=== PATIENT | female | born 1960 | race Caucasian/White ===

== ENCOUNTER 2021-10-27 22:43 | Emergency (ER) | payer BC ==
[2021-10-28 00:11] LABS: Urine Blood Negative (Negative); Urine Glucose Negative (Negative); Urine Protein Negative (Negative); Urine Specific Gravity <=1.005 (1.005-1.030); Urine pH 5.5 (5.0-7.0)
[2021-10-28 00:39] LABS: Urine Bacteria <20 /HPF (<20); Urine RBC <5 /HPF (None Seen)
[2021-10-28 01:09] LABS: Absolute Lymphocytes (CBC) 2.4 K/uL (0.7-4.9); Hematocrit 36.3 % (36.0-45.0); Lymphocytes % 31.3 % (15.3-44.8); MCV 89.4 fL (80-100); MPV 10.6 fL (7.6-11.3); RBC Red Blood Cell Count 4.06 M/uL (3.86-4.86)
[2021-10-28 01:16] LABS: Albumin 3.2 g/dL (3.4-5.0); Bilirubin Total 0.4 mg/dL (0.2-1.0); Potassium 3.3 mmol/L (3.5-5.1); Protein, Total 6.5 g/dL (6.4-8.2)
--- NOTE | 2021-10-28 01:58 | ER ---
Nurse's Notes [facility] Name: Tatyana Canela Age: 60 yrs Sex: Female : 1960 Arrival Date: 10/27/2021 Time: 22:49 Bed 4 Private MD: Diagnosis: Lower abdominal pain, unspecified Presentation: 10/27 23:02 Chief complaint: Lower abdominal pain, left sided low back pain, and pain with hb urination x 3 days. Hx of kidney stones. Coronavirus screen: At this time, the client does not indicate any symptoms associated with coronavirus-19. Ebola Screen: No symptoms or risks identified at this time. Initial Sepsis Screen: Does the patient meet any 2 criteria? No. Patient's initial sepsis screen is negative. Does the patient have a suspected source of infection? No. Patient's initial sepsis screen is negative. Risk Assessment: Do you want to hurt yourself or someone else? Patient reports no desire to harm self or others. Onset of symptoms was October 25, 2021. 23:02 Method Of Arrival: Ambulatory hb 23:02 Acuity: BRIAN 3 hb Triage Assessment: 10/28 02:11 General: Appears in no apparent distress. Behavior is calm, cooperative, appropriate tw5 for age. Historical: - Allergies: 10/27 23:05 Iodinated Contrast Media - IV Dye; hb - Home Meds: 23:06 Synthroid Oral [Active]; Simvastatin Oral [Active]; Toprol XL Oral [Active]; hb Hydroxyzine Oral [Active]; - PMHx: 23:06 Hypothyroidism; Anxiety; hb - PSHx: 23:06 partial hysterectomy; bariatric sx; Cholecystectomy; hb - Immunization history:: Adult Immunizations up to date, Client reports receiving the 2nd dose of the Covid vaccine. - Social history:: Smoking status: Patient denies any tobacco usage or history of. Screenin/19 00:40 Abuse screen: Denies threats or abuse. Denies injuries from another. Nutritional tw5 screening: No deficits noted. Tuberculosis screening: No symptoms or risk factors identified. Fall Risk None identified. Assessment: 00:40 General: Reports "I have this pain, I thought it was gas, it started on Wednesday. tw5 Sometimes I get really bad gas, but it hasn't gone away, it has only gotten worse. I have had bowel movements.". Pain: Complains of pain in suprapubic area, right lower quadrant and left lower quadrant Pain currently is 5 out of 10 on a pain scale. GI: Bowel sounds present X 4 quads. Abdomen is tender to palpation in suprapubic area, right lower quadrant and left lower quadrant. Vital Signs: 10/27 23:02 BP 120 / 73; Pulse 68; Resp 18; Temp 97.4; Pulse Ox 97% on R/A; Weight 106.59 kg; hb Height 5 ft. 4 in. (162.56 cm); Pain 8/10; 10/28 00:40 BP 116 / 66; Pulse 70; Resp 18; Pulse Ox 97% on R/A; Pain 5/10; tw5 02:08 BP 124 / 76; Pulse 64; Resp 18; Pulse Ox 97% on R/A; Pain 5/10; tw5 02:13 BP 122 / 75; Pulse 57; Pulse Ox 95% on R/A; tw5 02:14 Pain 0/10; tw5 10/27 23:02 Body Mass Index 40.34 (106.59 kg, 162.56 cm) hb ED Course: 10/27 22:49 Patient arrived in ED. bp1 22:53 [facility] kb 22:53 Luis Babcock MD is Attending Physician. kb 23:02 Arm band placed on. hb 23:05 Triage completed. hb 23:52 CT Stone Protocol In Process Unspecified. EDMS 10/28 00:37 Jaelyn Marin, HANS is Primary Nurse. aa9 00:40 Patient has correct armband on for positive identification. Placed in gown. Pulse ox tw5 on. NIBP on. Door closed. 00:40 Initial lab(s) drawn, by me, sent to lab. Inserted saline lock: 20 gauge in right tw5 antecubital area, using aseptic technique. Blood collected. 00:46 CBC with Diff Sent. tw5 00:46 CMP Sent. tw5 00:46 Lipase Sent. tw5 02:09 No provider procedures requiring assistance completed. IV discontinued, intact, tw5 bleeding controlled, No redness/swelling at site. Pressure dressing applied. Administered Medications: 02:05 Drug: Potassium Chloride 20 mEq Route: PO; tw5 02:14 Follow up: Response: No adverse reaction tw5 02:05 Drug: morphine 4 mg Route: IVP; Infused Over: 4 mins; Site: right antecubital; tw5 02:14 Follow up: Pain 0/10 Adult; Response: No adverse reaction; Pain is decreased; RASS: tw5 Alert and Calm (0) 02:05 Drug: Zofran (Ondansetron) 4 mg Route: IVP; Site: right antecubital; tw 02:14 Follow up: Response: No adverse reaction tw Medication: 00:40 VIS not applicable for this client. tw Outcome: 01:57 Discharge ordered by MD. hanley 02:11 Discharged to home ambulatory, with friend. tw 02:11 Condition: improved 02:11 Discharge instructions given to patient, Instructed on discharge instructions, follow up and referral plans. Demonstrated understanding of instructions, follow-up care, medications, Prescriptions given X 2. 02:17 Patient left the ED. Signatures: Dispatcher [employer] EDMS Sandie Beck, TREY-C GUEST SERVICES LEAD-CkBrittney Kapadia RN RN Bianca Schwartz Tiffany tw5 Jaelyn Marin, HANS RN aa9 Corrections: (The following items were deleted from the chart) 10/27 23:06 23:05 Allergies: No Known Allergies; [facility]
--- NOTE | 2021-10-28 01:58 | EDPHYS ---
Physician Documentation [facility] Name: Tatyana Canela Age: 60 yrs Sex: Female : 1960 Arrival Date: 10/27/2021 Time: 22:49 Bed 4 Private MD: ED Physician Luis Babcock HPI: 10/28 01:06 This 60 yrs old Female presents to ER via Ambulatory with complaints of Possible Kidney kb Stone. 01:06 The patient presents with abdominal pain. Onset: The symptoms/episode began/occurred 3 kb day(s) ago. The symptoms radiate to the left flank. Associated signs and symptoms: Pertinent positives: dysuria, nausea. The symptoms are described as constant. Modifying factors: The symptoms are alleviated by nothing, the symptoms are aggravated by nothing. Severity of pain: At its worst the pain was moderate in the emergency department the pain is unchanged. The patient has experienced a previous episode. The patient has not recently seen a physician. Historical: - Allergies: 10/27 23:05 Iodinated Contrast Media - IV Dye; hb - Home Meds: 23:06 Synthroid Oral [Active]; Simvastatin Oral [Active]; Toprol XL Oral [Active]; hb Hydroxyzine Oral [Active]; - PMHx: 23:06 Hypothyroidism; Anxiety; hb - PSHx: 23:06 partial hysterectomy; bariatric sx; Cholecystectomy; hb - Immunization history:: Adult Immunizations up to date, Client reports receiving the 2nd dose of the Covid vaccine. - Social history:: Smoking status: Patient denies any tobacco usage or history of. ROS: 10/28 01:05 Constitutional: Negative for fever, chills, and weight loss. kb Abdomen/GI: Positive for abdominal pain, Negative for nausea, vomiting, and diarrhea. : Positive for flank pain, burning with urination. All other systems are negative. Exam: 01:05 Constitutional: This is a well developed, well nourished patient who is awake, alert, kb and in no acute distress. Head/Face: Normocephalic, atraumatic. ENT: Moist Mucous membranes Cardiovascular: Regular rate and rhythm with a normal S1 and S2. No gallops, murmurs, or rubs. No pulse deficits. Respiratory: Respirations even and unlabored. No increased work of breathing. Talking in full sentences Skin: Warm, dry with normal turgor. Normal color. MS/ Extremity: Pulses equal, no cyanosis. Neurovascular intact. Full, normal range of motion. Neuro: Awake and alert, GCS 15, oriented to person, place, time, and situation. Moves all extremities. Normal gait. Psych: Awake, alert, with orientation to person, place and time. Behavior, mood, and affect are within normal limits. 01:05 Abdomen/GI: Inspection: abdomen appears normal, Bowel sounds: normal, in all quadrants, Palpation: soft, in all quadrants, mild abdominal tenderness, in the suprapubic area. 01:05 Back: CVA tenderness, that is mild, is noted on the left. Vital Signs: 10/27 23:02 BP 120 / 73; Pulse 68; Resp 18; Temp 97.4; Pulse Ox 97% on R/A; Weight 106.59 kg; hb Height 5 ft. 4 in. (162.56 cm); Pain 8/10; 10/28 00:40 BP 116 / 66; Pulse 70; Resp 18; Pulse Ox 97% on R/A; Pain 5/10; tw5 02:08 BP 124 / 76; Pulse 64; Resp 18; Pulse Ox 97% on R/A; Pain 5/10; tw5 02:13 BP 122 / 75; Pulse 57; Pulse Ox 95% on R/A; tw5 02:14 Pain 0/10; tw5 10/27 23:02 Body Mass Index 40.34 (106.59 kg, 162.56 cm) hb MDM: 10/27 23:05 Patient medically screened. kb 10/28 01:06 Data reviewed: vital signs, nurses notes. Data interpreted: Pulse oximetry: on room air kb is 97 %. Interpretation: normal. 01:57 Counseling: I had a detailed discussion with the patient and/or guardian regarding: the kb historical points, exam findings, and any diagnostic results supporting the discharge/admit diagnosis, lab results, radiology results, the need for outpatient follow up, a family practitioner, to return to the emergency department if symptoms worsen or persist or if there are any questions or concerns that arise at home. 10/27 23:05 Order name: CBC with Diff; Complete Time: 01:11 kb 10/27 23:05 Order name: CMP; Complete Time: 01:35 kb 10/27 23:05 Order name: Lipase; Complete Time: 01:35 kb 10/27 23:05 Order name: Urine Microscopic Only; Complete Time: 00:44 kb 10/27 23:05 Order name: CT Stone Protocol kb 10/28 00:11 Order name: Urine Dipstick-Ancillary; Complete Time: 00:17 EDMS 10/27 23:05 Order name: IV Saline Lock; Complete Time: 00:46 kb 10/27 23:05 Order name: Labs collected and sent; Complete Time: 00:46 kb 10/27 23:05 Order name: Urine Dipstick-Ancillary (obtain specimen); Complete Time: 00:05 kb Administered Medications: 02:05 Drug: Potassium Chloride 20 mEq Route: PO; tw5 02:14 Follow up: Response: No adverse reaction tw5 02:05 Drug: morphine 4 mg Route: IVP; Infused Over: 4 mins; Site: right antecubital; tw5 02:14 Follow up: Pain 0/10 Adult; Response: No adverse reaction; Pain is decreased; RASS: tw5 Alert and Calm (0) 02:05 Drug: Zofran (Ondansetron) 4 mg Route: IVP; Site: right antecubital; tw5 02:14 Follow up: Response: No adverse reaction tw5 Disposition: 04:25 Co-signature as Attending Physician, Luis Babcock MD. rn Disposition Summary: 10/28/21 01:57 Discharge Ordered Location: Home kb Condition: Stable kb Diagnosis - Lower abdominal pain, unspecified kb Followup: kb - With: Emergency Department - When: As needed - Reason: Worsening of condition Followup: kb - With: Private Physician - When: 2 - 3 days - Reason: Recheck today's complaints, Continuance of care, Re-evaluation by your physician Discharge Instructions: - Discharge Summary Sheet kb - Abdominal Pain, Adult, Zwym-bv-Ajdv kb Forms: - Medication Reconciliation Form kb - Thank You Letter kb - Antibiotic Education kb - Prescription Opioid Use kb Prescriptions: - Zofran 4 mg Oral Tablet - take 1 tablet by ORAL route every 6 hours As needed; 20 tablet; Refills: 0, kb Product Selection Permitted - Diclofenac Sodium 75 mg Oral tablet,delayed release (DR/EC) - take 1 tablet by ORAL route 2 times per day As needed; 30 tablet; Refills: 0, kb Product Selection Permitted Signatures: Dispatcher [employer] Sandie Lopez, DIRECTOR OF FLIGHT OPERATIONS-C DIRECTOR OF FLIGHT OPERATIONS-Ckb Luis Babcock MD MD rn Baxter, Heather, RN RN hb Wood, Tiffany tw5 Corrections: (The following items were deleted from the chart) 10/27 23:06 23:05 Allergies: No Known Allergies; hb hb
[2021-10-28] MEDS ORDERED: MORPHINE 4 MG/ML SYR ONE (02:05)
[2021-10-28] MEDS ORDERED: ONDANSETRON 4 MG/2 ML VIAL ONE (02:05)
[2021-10-28] MEDS ORDERED: POTASSIUM CL SA 10 MEQ TAB PO ONE (02:05)
[2021-10-28 02:28] VITALS: TEMP 97.4
[2021-10-28 02:33] VITALS: BP 122/75; O2SAT 95
--- NOTE | 2021-10-28 16:18 | RAD REPORT ---
EXAM DESCRIPTION: CT - Stone Protocol - 10/28/2021 6:13 am CLINICAL HISTORY: The patient is 60 years old and is Female; flank pain TECHNIQUE: Axial computed tomography images of the abdomen and pelvis without intravenous contrast. Sagittal and coronal reformatted images were created and reviewed. This CT exam was performed usi ng one or more of the following dose reduction techniques: automated exposure control, adjustment o f the mA and/or kV according to patient size, and/or use of iterative reconstruction technique. DLP: 1387 mGy*cm COMPARISON: None. FINDINGS: LUNG BASES: Lung bases are clear. HEART: Visualized heart is normal. MEDIASTINUM: Prior gastric sleeve. Small hiatal hernia. ABDOMEN: LIVER: Hepatic steatosis. GALLBLADDER AND BILE DUCTS: Prior cholecystectomy with extrahepatic ductal dilatation. PANCREAS: Unremarkable. No ductal dilation. SPLEEN: Unremarkable. No splenomegaly. ADRENALS: Unremarkable. No mass. KIDNEYS AND URETERS: Unremarkable. No obstructing stones. No hydronephrosis. STOMACH AND BOWEL: Unremarkable. No obstruction. No mucosal thickening. PELVIS: APPENDIX: The appendix is seen and is within normal limits. BLADDER: Bladder is decompressed. No stones. REPRODUCTIVE: Prior hysterectomy. ABDOMEN and PELVIS: INTRAPERITONEAL SPACE: Unremarkable. No free air. No significant fluid collection. BONES/JOINTS: Right one anterolisthesis of L4 on L5. No acute fracture. No dislocation. SOFT TISSUES: Unremarkable. VASCULATURE: Unremarkable. No abdominal aortic aneurysm. LYMPH NODES: Unremarkable. No enlarged lymph nodes. IMPRESSION: 1. No acute abdominal or pelvic abnormality. No obstructive uropathy. Consider postcon trast images for further evaluation. Correlate with urinalysis. 2. Prior gastric sleeve. Small hiatal hernia. 3. Hepatic steatosis. 4. Prior cholecystectomy with extrahepatic ductal dilatation. Electronically signed by: Devonte Lauren DO 10/27/2021 11:56 PM CDT Due to temporary technical issues with the PACS/Fluency reporting system, reports are being signed by the in house radiologists without review as a courtesy to insure prompt reporting. The interpreting radiologist is fully responsible for the content of the report.
--- OUTSIDE RECORDS SUMMARY | 2021-10-30 13:40 | XMS REPORT | Continuity of Care Document ---
:1960 Author Organization [facility] t Address [address] [place] [address] Dr. Robison [address] [place] [id number] Care Team Providers Name Role Phone Lisette OMALLEY Attending Clinician Unavailable Payers Payer Name Policy Type Policy Number Effective Date Expiration Date S [facility] - [id number] 2019 00:00:00 OUT OF STATE Problems This patient has no known problems. Allergies, Adverse Reactions, Alerts Allergy Allergy Status Severity Reaction(s) Onset Inactive Treating Comm ents Source Name Type Date Date Clinician NO KNOWN Drug Active [facility] ALLERGIE Class [facility] Medications This patient has no known medications. Procedures This patient has no known procedures. Encounters Start End Encounter Admission Attending Care Care Encounter Source Date/Time Date/Time Type Type Clinicians Facility Department ID 2020-05-21 2020-05-21 Outpatient R SHAHRAM RILUIGI [facility] [id number] [facility] 11:15:00 11:15:00 NIKITA [facility] Results This patient has no known results.
== END 2021-10-28 02:17 | disposition home or self-care (01) ==
LOC: ER 22:43
DX: R10.30 Lower abdominal pain, unspecified (principal); R30.0 Dysuria; F41.9 Anxiety disorder, unspecified; E03.9 Hypothyroidism, unspecified; Z91.041 Radiographic dye allergy status
CPT/HCPCS: 85025; 36415; 81003; 81015; 83690; 80053; 76377; 74176; J2405; 96374; 96375; 99284

== ENCOUNTER 2022-01-12 01:05 | Emergency (ER) | payer BC ==
--- OUTSIDE RECORDS SUMMARY | 2022-01-12 01:08 | XMS REPORT | Continuity of Care Document ---
:1960 Author Organization [facility] t Address [address] [place] [address] Dr. Robison [address] [place] [id number] Care Team Providers Name Role Phone NIKITA OMALLEY Attending Clinician Unavailable Payers Payer Name Policy Type Policy Number Effective Date Expiration Date S ella [facility] - [id number] 2019 00:00:00 OUT OF STATE Problems This patient has no known problems. Allergies, Adverse Reactions, Alerts Allergy Allergy Status Severity Reaction(s) Onset Inactive Treating Comm ents Source Name Type Date Date Clinician NO KNOWN Drug Active [facility] Medications This patient has no known medications. Procedures This patient has no known procedures. Encounters Start End Encounter Admission Attending Care Care Encounter Source Date/Time Date/Time Type Type Clinicians Facility Department ID 2020-05-21 2020-05-21 Outpatient Zully OMALLEY AZLUIGI [facility] [id number] [facility] 11:15:00 11:15:00 NIKITA [facility] Results This patient has no known results.
[2022-01-12] MEDS ORDERED: BACI/NEOMYCIN/POLY OINT 15GM TOP ONE (02:09)
--- NOTE | 2022-01-12 02:19 | EDPHYS ---
Physician Documentation [facility] Name: Tatyana Canela Age: 61 yrs Sex: Female : 1960 Arrival Date: 01/12/2022 Time: 01:08 Bed 13 Private MD: ED Physician Chucho Minaya Historical: - Allergies: 01/12 01:22 Iodinated Contrast Media - IV Dye; as6 - Home Meds: 01:22 Hydroxyzine Oral [Active]; simvastatin 40 mg oral tab 1 tab once daily [Active]; as6 Synthroid 75 mcg oral tab 1 tab once daily [Active]; Toprol XL 50 mg oral Tb24 1 tab once daily [Active]; Lexapro 20 mg Oral tab 1 tab once daily [Active]; - PMHx: 01:22 Anxiety; Hypothyroidism; as6 - PSHx: 01:22 bariatric sx; Cholecystectomy; partial hysterectomy; as6 - Immunization history:: Client reports receiving the 2nd dose of the Covid vaccine, GO-SIM. - Social history:: Smoking status: Patient denies any tobacco usage or history of. Vital Signs: 01:17 BP 134 / 78; Pulse 61; Resp 15 S; Temp 98.4(O); Pulse Ox 98% on R/A; Weight 107.5 kg as6 (R); Height 5 ft. 4 in. (162.56 cm) (R); Pain 9/10; 02:45 BP 130 / 76; Pulse 64; Resp 17; Temp 98.2; Pulse Ox 100% ; Pain 0/10; ke1 01:17 Body Mass Index 40.68 (107.50 kg, 162.56 cm) as6 MDM: 02:19 Patient medically screened. kdr 01/12 02:08 Order name: Wound Care; Complete Time: 02:18 ke1 01/12 02:17 Order name: Misc. 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 Exp: ke08/16/2023. Lot #: [id number]. } Route: IM; Site: right deltoid; 02:46 Follow up: Response: No adverse reaction ke1 02:30 Not Given (errorr): Bacitracin-Polymyxin H-Bvkhpqyo-Zacyhkpggmrklm Ointment 1 ke1 application Ophthalmic once Disposition Summary: 01/12/22 02:19 Discharge Ordered Location: Home kdr Problem: new kdr Symptoms: have improved kdr Condition: Stable kdr Diagnosis - Right index fingertip laceration kdr Followup: kdr - With: Private Physician - When: 1 - 2 days - Reason: If symptoms return, Further diagnostic work-up, Recheck today's complaints, Continuance of care, Re-evaluation by your physician Discharge Instructions: - Discharge Summary Sheet kdr - Sterile Tape Wound Care kdr - Laceration Care, Adult, Wglf-ev-Mbal kdr Forms: - Medication Reconciliation Form kdr - Thank You Letter kdr Signatures: Chucho Minaya MD MD kdr Bassam Rojas, RN RN as6 Laney Rice RN RN ke1
--- NOTE | 2022-01-12 02:19 | ER ---
Nurse's Notes [facility] Name: Tatyana Canela Age: 61 yrs Sex: Female : 1960 Arrival Date: 01/12/2022 Time: 01:08 Bed 13 Private MD: Diagnosis: Right index fingertip laceration Presentation: 01/12 01:17 Chief complaint: Patient states: "I was cooking and cut my finger with a knife". as6 Coronavirus screen: At this time, the client does not indicate any symptoms associated with coronavirus-19. Ebola Screen: No symptoms or risks identified at this time. Initial Sepsis Screen: Does the patient meet any 2 criteria? No. Patient's initial sepsis screen is negative. Does the patient have a suspected source of infection? No. Patient's initial sepsis screen is negative. Risk Assessment: Do you want to hurt yourself or someone else? Patient reports no desire to harm self or others. Onset of symptoms was January 12, 2022. 01:17 Method Of Arrival: Ambulatory as6 01:17 Acuity: BRIAN 4 as6 Triage Assessment: 01:23 General: Appears in no apparent distress. Behavior is calm, cooperative. Pain: as6 Complains of pain in left hand. Derm: Wound noted palmar aspect of distal phalanx of left index finger Wound is laceration. 02:19 Musculoskeletal: No deficits noted. Injury Description: Laceration sustained to palmar ke1 aspect of distal phalanx of left index finger and left hand is clean, no active bleeding noted at this time. Historical: - Allergies: 01:22 Iodinated Contrast Media - IV Dye; as6 - Home Meds: 01:22 Hydroxyzine Oral [Active]; simvastatin 40 mg oral tab 1 tab once daily [Active]; as6 Synthroid 75 mcg oral tab 1 tab once daily [Active]; Toprol XL 50 mg oral Tb24 1 tab once daily [Active]; Lexapro 20 mg Oral tab 1 tab once daily [Active]; - PMHx: 01:22 Anxiety; Hypothyroidism; as6 - PSHx: 01:22 bariatric sx; Cholecystectomy; partial hysterectomy; as6 - Immunization history:: Client reports receiving the 2nd dose of the Covid vaccine, pfizer. - Social history:: Smoking status: Patient denies any tobacco usage or history of. Screenin:19 Abuse screen: Denies threats or abuse. Nutritional screening: No deficits noted. ke1 Tuberculosis screening: No symptoms or risk factors identified. Fall Risk None identified. Assessment: 02:18 Reassessment: Finger cleaned with NS, steri strips applied + triple ABT cream and ke1 wrapped with coband. 02:45 Reassessment: Patient states feeling better. Patient states symptoms have improved. ke1 Vital Signs: 01:17 BP 134 / 78; Pulse 61; Resp 15 S; Temp 98.4(O); Pulse Ox 98% on R/A; Weight 107.5 kg as6 (R); Height 5 ft. 4 in. (162.56 cm) (R); Pain 9/10; 02:45 BP 130 / 76; Pulse 64; Resp 17; Temp 98.2; Pulse Ox 100% ; Pain 0/10; ke1 01:17 Body Mass Index 40.68 (107.50 kg, 162.56 cm) as6 ED Course: 01:08 Patient arrived in ED. bp1 01:20 Triage completed. as6 01:23 Arm band placed on. as6 01:44 Chucho Minaya MD is Attending Physician. kdr 02:05 Laney Rice RN is Primary Nurse. ke1 02:19 Patient has correct armband on for positive identification. Bed in low position. Call ke1 light in reach. 02:19 No provider procedures requiring assistance completed. ke1 02:46 Patient did not have IV access during this emergency room visit. 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 Exp: ke1 08/16/2023. Lot #: [id number]. } Route: IM; Site: right deltoid; 02:46 Follow up: Response: No adverse reaction ke1 02:30 Not Given (errorr): Bacitracin-Polymyxin S-Rilubbvj-Yttsoxmkgmjjfi Ointment 1 ke1 application Ophthalmic once Medication: 02:45 Vaccine Information Statement (VIS) provided today. Questions and/or concerns ke1 addressed. VIS edition date: January 12, 2022. Outcome: 02:19 Discharge ordered by . kdr 02:46 Discharged to home ambulatory. ke1 02:46 Condition: good 02:46 Discharge instructions given to patient. 02:46 Patient left the ED. ke1 Signatures: Chucho Minaya MD MD kdr [place], Brittany bp1 Slawson, Ashby RN RN as6 Laney Rice RN RN ke1
[2022-01-12] MEDS ORDERED: TETANUS & DIPHTHERIA TOX,ADULT 0.5 ML VIAL ONE (02:22)
[2022-01-12 02:55] VITALS: BP 130/76; TEMP 98.2; O2SAT 100
== END 2022-01-12 02:46 | disposition home or self-care (01) ==
LOC: ER 01:05
DX: S61.210A Laceration without foreign body of right index finger without damage to nail, initial encounter (principal); W26.0XXA Contact with knife, initial encounter; Y93.G3 Activity, cooking and baking; Y92.010 Kitchen of single-family (private) house as the place of occurrence of the external cause; Z23 Encounter for immunization; F41.9 Anxiety disorder, unspecified; E03.9 Hypothyroidism, unspecified
CPT/HCPCS: 90471; 90714; 99283